=== PATIENT | female | born 1985 | race Caucasian/White ===

== ENCOUNTER → 2016-02-17 | Outpatient (CLI) | payer BC ==
[~2016-02-17] MED LIST: EXTR500C4 PO; VALT500T PO
--- NOTE | 2016-02-17 22:02 | REP ---
Clinical: well-being. Comparison: 02/10/2016 . Findings: Examination demonstrates a single live intrauterine in breech presentation. motion is identified by technologist. Placenta is noted anteriorly and grade one without evidence for placenta previa or abruption. Amniotic fluid volume is normal. Cervix measures 3.1 cm in length and appears closed. Nuchal cord cannot be excluded. Gestational age by first ultrasound 31 weeks 1 day with FANNY 04/19/2016 . Gestational age by current measurements 30 weeks 0 days with FANNY 04/27/2016 . FHR equals 147 beats per minute. BPD 7.8 cm 31 weeks 2 days HC 28.4 cm 31 weeks 1 day AC 24.7 cm 28 weeks 6 days FL 5.7 cm 30 weeks 0 days HL 5.0 cm 29 weeks 0 days HC/AC ratio 1.15 Estimated weight 1428 grams ( 14th percentile based on age by first ultrasound ). Biophysical profile score equals 8/8. Amniotic fluid index equals 18.4 cm (8.8 - 23.8) Umbilical cord SD ratio equals 2.32 Impression: Single live gestation in breech presentation. Biophysical profile score equals 8/8. Signed by Mc Jenkins MD 02/17/2016 09:54 P
== END | disposition home or self-care (01) ==
LOC: M RAD 16:12
PROVIDERS: ATTEND Advanced Practice Midwife
DX: O36.5931 Maternal care for other known or suspected poor fetal growth, third trimester, fetus 1 (principal); Z36 Encounter for antenatal screening of mother; Z3A.30 30 weeks gestation of pregnancy; O32.1XX0 Maternal care for breech presentation, not applicable or unspecified

== ENCOUNTER → 2016-03-01 | Outpatient (CLI) | payer BC ==
--- NOTE | 2016-03-01 21:37 | REP ---
Clinical: Anatomical evaluation. Comparison: 02/17/2016 . Findings: Examination demonstrates a single live intrauterine in breech presentation. motion is identified by technologist. Placenta is noted anteriorly and grade one without evidence for placenta previa or abruption. Amniotic fluid volume is normal. Cervix measures 3.4 cm in length and appears closed. Nuchal cord cannot be excluded. Gestational age by LMP 33 weeks 0 days with FANNY 04/19/2016 . Gestational age by current measurements 31 weeks 2 days with FANNY 05/01/2016 . FHR equals 157 beats per minute. BPD 8.0 cm 31 weeks 6 days HC 29.3 32 weeks 2 days AC 26.4 30 weeks 4 days FL 5.8 30 weeks 2 days HL 5.4 31 weeks 2 days HC/AC ratio 1.11 Estimated weight 1633 grams ( 5th percentile based on age by LMP and first ultrasound). Impression: Single live intrauterine in breech presentation. Growth is lower limits of normal and may warrant continued follow-up. Nuchal cord cannot be excluded. Signed by Mc Jenkins MD 03/01/2016 09:28 P
== END | disposition home or self-care (01) ==
LOC: M RAD 17:02
PROVIDERS: ATTEND Advanced Practice Midwife
DX: O36.5931 Maternal care for other known or suspected poor fetal growth, third trimester, fetus 1 (principal); O32.1XX0 Maternal care for breech presentation, not applicable or unspecified; Z36 Encounter for antenatal screening of mother; Z3A.31 31 weeks gestation of pregnancy

== ENCOUNTER → 2016-03-04 | Outpatient (CLI) | payer BC ==
--- NOTE | 2016-03-05 13:06 | REP ---
Limited obstetric sonography: History: Supervision of for biophysical profile. Findings: Scanning demonstrates a viable single intrauterine gestation in a breech lie. An anterior grade 1 placenta is seen without evidence of previa or abruption. Amniotic fluid is subjectively low normal. HUE is in the normal range at 9.1 cm (8.2 - 24.6 cm). heart rate is recorded at 147 beats per minute. Biophysical profile score is 8 out of a possible 8. S/D ratio in the umbilical cord artery by Doppler is normal at 2.04. Signed by Omar Campos MD 03/05/2016 02:40 P
== END | disposition home or self-care (01) ==
LOC: M RAD 18:30
PROVIDERS: ATTEND Obstetrics & Gynecology
DX: O36.5933 Maternal care for other known or suspected poor fetal growth, third trimester, fetus 3 (principal); Z36 Encounter for antenatal screening of mother; Z3A.00 Weeks of gestation of pregnancy not specified; O32.1XX0 Maternal care for breech presentation, not applicable or unspecified

== ENCOUNTER → 2016-03-11 | Outpatient (CLI) | payer BC ==
--- NOTE | 2016-03-12 04:56 | REP ---
Clinical: well-being . Comparison: 03/04/2016 . Findings: Examination demonstrates a single live intrauterine in breech presentation. motion is identified by technologist. Placenta is noted anteriorly and grade grade II without evidence for placenta previa or abruption. Amniotic fluid volume is normal. Cervix measures 2.6 cm in length and appears closed. Nuchal cord cannot be excluded Gestational age by LMP 34 weeks 3 days with FANNY 04/19/2016 . Gestational age by first ultrasound 34 weeks 3 days. FHR equals 126 beats per minute. Biophysical profile score equals 8/8. Amniotic fluid index equals 11.1 cm. Umbilical cord SD ratio equals 2.58 Impression: Single live advanced gestation in breech presentation. Nuchal cord cannot be excluded. Biophysical profile score equals 8/8. Amniotic fluid index and umbilical cord SD ratio are within normal range. Signed by Mc Jenkins MD 03/12/2016 04:48 A
== END | disposition home or self-care (01) ==
LOC: M RAD 18:32
PROVIDERS: ATTEND Obstetrics & Gynecology
DX: O36.5930 Maternal care for other known or suspected poor fetal growth, third trimester, not applicable or unspecified (principal); Z3A.34 34 weeks gestation of pregnancy; Z36 Encounter for antenatal screening of mother; O32.1XX0 Maternal care for breech presentation, not applicable or unspecified

== ENCOUNTER → 2016-03-17 | Outpatient (CLI) | payer BC ==
--- NOTE | 2016-03-18 04:25 | REP ---
Clinical: well-being . Comparison: 03/11/2016 . Findings: Examination demonstrates a single live intrauterine in breech presentation. motion is identified by technologist. Placenta is noted anteriorly and grade II without evidence for placenta previa or abruption. Amniotic fluid volume is low-normal. Nuchal cord cannot be excluded. Gestational age by first ultrasound 35 weeks 2 days with FANNY 04/19/2016 . Gestational age by current measurements 33 weeks 2 days with FANNY 05/03/2016 . FHR equals 150 beats per minute. Biophysical profile score equals 8/8. Amniotic fluid index equals 6.6 cm (7.9 - 24.9). Umbilical cord SD ratio equals 3.00. Estimated weight 2214 grams ( 20th percentile). Single umbilical artery noted. Impression: Single live intrauterine in breech presentation demonstrating appropriate interval growth. Biophysical profile score equals 8/8. Estimated weight normal range. Amniotic fluid volume minimally below normal range. Nuchal cord cannot be excluded. Single umbilical artery noted. Signed by Mc Jenkins MD 03/18/2016 04:18 A
== END | disposition home or self-care (01) ==
LOC: M RAD 17:58
PROVIDERS: ATTEND Obstetrics & Gynecology
DX: O36.5933 Maternal care for other known or suspected poor fetal growth, third trimester, fetus 3 (principal); Z36 Encounter for antenatal screening of mother; Z3A.33 33 weeks gestation of pregnancy; O32.1XX0 Maternal care for breech presentation, not applicable or unspecified

== ENCOUNTER → 2016-03-25 | Outpatient (CLI) | payer BC ==
--- NOTE | 2016-03-26 02:45 | REP ---
Clinical: Biophysical profile . Comparison: 03/17/2016 . Findings: Examination demonstrates a single live advanced intrauterine in breech presentation. motion is identified by technologist. Placenta is noted anteriorly and grade three without evidence for placenta previa or abruption. Amniotic fluid volume is normal. Nuchal cord cannot be excluded. Gestational age by first ultrasound 36 weeks 3 days with FANNY 04/19/2016 . FHR equals 157 beats per minute. Biophysical profile score equals 8/8 HUE equals 9.8 cm (7.6 - 24.7) Impression: Single live advanced gestation in breech presentation. Biophysical profile score equals 8/8. Amniotic fluid index is lower limits normal. Signed by Mc Jenkins MD 03/26/2016 02:37 A
== END | disposition home or self-care (01) ==
LOC: M RAD 18:37
PROVIDERS: ATTEND Obstetrics & Gynecology
DX: O36.5933 Maternal care for other known or suspected poor fetal growth, third trimester, fetus 3 (principal); Z36 Encounter for antenatal screening of mother; Z3A.36 36 weeks gestation of pregnancy; O32.1XX0 Maternal care for breech presentation, not applicable or unspecified

== ENCOUNTER → 2016-04-01 | Outpatient (CLI) | payer BC ==
--- NOTE | 2016-04-04 09:38 | REP ---
Clinical: Biophysical profile. Comparison: 03/25/2016. Findings: Ultrasound examination demonstrates single live advanced gestation in breech presentation. motion was identified by technologist. Placenta is noted anteriorly and grade III without evidence for placenta previa or abruption. Amniotic fluid is within normal limits. Nuchal cord cannot be excluded. Gestational age by first ultrasound 37 weeks 3 days with FANNY 04/19/2016. EFW by current measurements 2500 grams (13 %). Amniotic fluid index equals 7.1 cm (deepest single pocket). Biophysical profile score equals 8/8. Umbilical cord SD ratio equals 1.79 (1.60 - 2.60). Impression: Single live advanced gestation in breech presentation. Estimated weight within normal limits. Biophysical profile score equals 8/8. Signed by Mc Jenkins MD 04/04/2016 09:30 A
== END | disposition home or self-care (01) ==
LOC: M RAD 18:45
PROVIDERS: ATTEND Obstetrics & Gynecology
DX: O36.5933 Maternal care for other known or suspected poor fetal growth, third trimester, fetus 3 (principal); Z36 Encounter for antenatal screening of mother; Z3A.37 37 weeks gestation of pregnancy; O32.1XX0 Maternal care for breech presentation, not applicable or unspecified

== ENCOUNTER → 2016-04-08 | Outpatient (CLI) | payer BC ==
[~2016-04-08] MED LIST changes: +COLA100C PO; +IBUP600T26 PO; +OXYC1TAB23 PO; +PRENTAB52 PO; +PRENTAB9 PO
--- NOTE | 2016-04-08 13:41 | REP ---
Clinical: Biophysical profile. Comparison: 04/01/2016. Findings: Advanced gestation in breech presentation. Placenta is noted anteriorly and grade II without evidence for placenta previa. Gestational age by LMP and first ultrasound 38 weeks 3 days with estimated date of delivery 04/19/2016. heart rate equals 150 beats per minute. Biophysical profile score equals 8/8. Umbilical cord SD ratio equals 2.04 Impression: Biophysical profile score equals 8/8. Signed by Mc Jenkins MD 04/08/2016 01:33 P
== END ==
LOC: M RAD 12:44
PROVIDERS: ATTEND Obstetrics & Gynecology
DX: O36.5933 Maternal care for other known or suspected poor fetal growth, third trimester, fetus 3 (principal); Z36 Encounter for antenatal screening of mother; Z3A.38 38 weeks gestation of pregnancy; O32.1XX0 Maternal care for breech presentation, not applicable or unspecified

== ENCOUNTER 2016-04-12 05:06 | Inpatient (IN) | payer BC ==
[~2016-04-12] VITALS: Ht 170.2 cm; Wt 84.0 kg
[2016-04-12] VITALS (10 sets, daily range): BP systolic 105–134; BP diastolic 56–86
[~2016-04-12 05:06] MED LIST changes: -COLA100C PO; -IBUP600T26 PO; -OXYC1TAB23 PO; -PRENTAB9 PO
[2016-04-12] MEDS ORDERED: PRENTAB9 PO (05:24)
[2016-04-12 05:44] LABS: MEAN CORPUSCULAR HEMOGLOBIN 30.9 pg (27.0-33.0); MEAN CORPUSCULAR HGB CONC 33.9 g/dl (32.0-36.5); MEAN CORPUSCULAR VOLUME 91.3 fl (80.0-96.0); RED CELL DISTRIBUTION WIDTH 12.6 % (11.5-14.5); WHITE BLOOD COUNT 11.6 K/mm3 (4.0-10.0)
[2016-04-12] MEDS ORDERED: ceFAZolin SOD 1 GM in D5W MINI-BAG PLUS 50 ML IV ONE (05:45)
[2016-04-12] MEDS ORDERED: LR 800 ML IV ONE (05:45)
[2016-04-12] MEDS ORDERED: BICITRA 30ML SOLN UDC PO ONE (05:45)
[2016-04-12] MEDS ORDERED: LR 1,000 ML IV SCH ×2 (06:15→09:00)
[2016-04-12] MEDS ORDERED: METOCLOPRAMIDE INJ 10MG/2ML VIAL (J2765) IV PRN ×2 (07:46→09:00)
[2016-04-12] MEDS ORDERED: ONDANSETRON 4MG/2ML VIAL (J2405) IV PRN ×3 (07:46→09:00)
[2016-04-12] MEDS ORDERED: NALOXONE INJ 0.4 MG/1 ML VIAL (J2310) IV PRN ×2 (07:46)
[2016-04-12] MEDS ORDERED: NALBUPHINE HCL 10 MG/ML AMP (J2300) IV PRN ×2 (07:46→09:00)
[2016-04-12] MEDS ORDERED: PHENYLephrine HCL 500 MCG/5 ML (100MCG/ML) SYRINGE (J2370) As Ordered ONE (08:04)
[2016-04-12] MEDS ORDERED: OXYTOCIN INJ 10 UNITS/ML VIAL (J2590) As Ordered ONE (08:04)
[2016-04-12] MEDS ORDERED: MORPHINE PRES-FREE INJ 10 MG/10 ML VIAL (J2274) As Ordered ONE (08:04)
[2016-04-12] MEDS ORDERED: ONDANSETRON 4MG/2ML VIAL (J2405) As Ordered ONE (08:04)
[2016-04-12] MEDS ORDERED: ePHEDrine SULFATE 25 MG/5 ML(5MG/ML) SYRINGE As Ordered ONE ×2 (08:04→09:07)
[2016-04-12] MEDS ORDERED: KETOROLAC 60 MG/2 ML VIAL (J1885) As Ordered ONE (08:14)
[2016-04-12] MEDS ORDERED: PERCOCET 5MG/325MG TAB PO PRN (09:00)
[2016-04-12] MEDS ORDERED: DOCUSATE SODIUM 100 MG CAP PO PRN (09:00)
[2016-04-12] MEDS ORDERED: OXYTOCIN DRIP 30 UNITS in APPROPRIATE DILUENT 1 EA IV ONE (09:00)
[2016-04-12] MEDS ORDERED: RHOGAM 300 MCG (1500 IU) INJ (J2790) IM SCH (09:00)
[2016-04-12] MEDS ORDERED: fentaNYL 100 MCG/2 ML INJECTION (J3010) IV PRN (09:00)
[2016-04-12] MEDS ORDERED: MEASLES,MUMPS,RUBELLA VACCINE INJ (MMR-II) (90707) SC SCH (09:00)
[2016-04-12] MEDS: PRENATAL VITAMIN TAB PO SCH (09:00)
--- NOTE | 2016-04-12 09:26 | RO ---
DATE OF PROCEDURE: 04/12/2016 PREOPERATIVE DIAGNOSIS: 39 weeks, breech presentation. POSTPROCEDURE DIAGNOSIS: 39 weeks, breech presentation. PROCEDURE: Primary low transverse section. SURGEON: Dr. Cedric Castillo BLANKET FOLDER: ANESTHESIA: Spinal. ESTIMATED BLOOD LOSS: 500 mL. URINE OUTPUT: 300 mL. IV FLUIDS: 1200 mL lactated Ringers (LR). FINDINGS: 6 pound 3 ounce or 2816 gram male infant, Apgars 9 and 9. Cristobal breech position. Normal uterus, fallopian tubes and ovaries. There was a 2-vessel umbilical cord noted. There was also a nuchal cord times one. OPERATIVE SUMMARY: The patient taken to the operating room where spinal anesthesia was induced. She was prepped and draped in sterile fashion in the supine position. A Okeefe catheter was placed. A Pfannenstiel skin incision was made with the scalpel and carried through to the fascia. The fascia was nicked and extended. The peritoneal cavity was entered. Bladder flap was created. A curvilinear incision was made in the lower uterine segment until bulging membranes were noted. This was extended manually. Membranes were ruptured of clear fluid. The was delivered from the cristobal breech position using standard maneuvers without difficulty. The cord was doubly clamped and cut. The infant was handed off to the awaiting nurses. The placenta was expressed. The uterus was exteriorized and cleared of clots and debris. The uterine incision was closed with #0 Vicryl in a running locked fashion. A second imbricating layer of #0 Vicryl was placed. The uterus was placed back in the abdominal cavity. The peritoneum was closed with #2-0 Vicryl in a running fashion. The fascia was closed with #0 Vicryl. The skin was closed with #4-0 Monocryl subcuticular sutures. Sponge, needle and instrument counts were correct.
[2016-04-12] MEDS ORDERED: ePHEDrine SULFATE 25 MG/5 ML(5MG/ML) SYRINGE IV PRN ×2 (09:30→11:30)
[2016-04-12] MEDS ORDERED: LACTATED RINGER'S 1000 ML IV ONE (10:00)
[2016-04-12] MEDS ORDERED: LR 500 ML IV ONE (11:30)
[2016-04-12] MEDS: PERCOCET 5MG/325MG TAB PO PRN (12:50)
[2016-04-12] MEDS: KETOROLAC 30 MG/ML VIAL (J1885) IV SCH ×2 (14:40→23:05)
[2016-04-12] MEDS: LR 1,000 ML IV SCH ×2 (15:05→23:06)
[2016-04-12] MEDS ORDERED: LR 1,000 ML IV ONE (23:00)
[2016-04-13] VITALS (7 sets, daily range): BP systolic 86–122; BP diastolic 51–61
[2016-04-13] MEDS: KETOROLAC 30 MG/ML VIAL (J1885) IV SCH ×2 (04:41→10:53)
[2016-04-13] MEDS ORDERED: OXYC1TAB23 PO (07:09)
[2016-04-13] MEDS ORDERED: IBUP600T26 PO (07:10)
[2016-04-13] MEDS ORDERED: COLA100C PO (07:11)
[2016-04-13 07:27] LABS: MEAN CORPUSCULAR HEMOGLOBIN 30.9 pg (27.0-33.0); MEAN CORPUSCULAR HGB CONC 33.3 g/dl (32.0-36.5); RED CELL DISTRIBUTION WIDTH 12.8 % (11.5-14.5); WHITE BLOOD COUNT 6.2 K/mm3 (4.0-10.0)
[2016-04-13] MEDS: PRENATAL VITAMIN TAB PO SCH (09:00)
[2016-04-13] MEDS: PERCOCET 5MG/325MG TAB PO PRN ×4 (12:50→22:37)
[2016-04-13] MEDS ORDERED: IBUPROFEN 800 MG TAB PO SCH (16:00)
[2016-04-13] MEDS: IBUPROFEN 800 MG TAB PO SCH (18:34)
[2016-04-13] MEDS: SIMETHICONE 80 MG CHEW TAB PO PRN (21:03)
[2016-04-14] MEDS: IBUPROFEN 800 MG TAB PO SCH ×2 (03:45→10:45)
[2016-04-14 05:22] VITALS: BP 108/58
[2016-04-14] MEDS: PRENATAL VITAMIN TAB PO SCH (08:22)
[2016-04-14] MEDS: SIMETHICONE 80 MG CHEW TAB PO PRN (08:22)
[2016-04-14] MEDS ORDERED: OXYC1TAB23 PO (08:48)
[2016-04-14] MEDS: PERCOCET 5MG/325MG TAB PO PRN (09:56)
== END 2016-04-14 12:21 | disposition home or self-care (01) | DRG 540 ==
LOC: M LDI 05:06 → M OBS 11:36
PROVIDERS: ADMIT Specialist; ATTEND Specialist
PROC: 10D00Z1 Extraction of Products of Conception, Low, Open Approach (ICD-10-PCS; principal; 2016-04-12 07:30)
DX: O32.1XX0 Maternal care for breech presentation, not applicable or unspecified (principal); O69.82X0 Labor and delivery complicated by other cord entanglement, without compression, not applicable or unspecified; Z37.0 Single live birth; Z3A.39 39 weeks gestation of pregnancy

== ENCOUNTER 2016-08-24 10:35 | Emergency (ER) | payer BC ==
[~2016-08-24] VITALS: Ht 172.7 cm; Wt 69.8 kg
[~2016-08-24 10:35] MED LIST changes: +COLA100C5 PO; +IBUP-1022 PO; +OXYC1TAB23 PO; +PRENTAB9 PO
[2016-08-24] MEDS ORDERED: ONDANSETRON 4MG/2ML VIAL (J2405) IV ONE (11:45)
[2016-08-24] MEDS ORDERED: NS 1,000 ML IV ONE (11:45)
[2016-08-24 12:00] LABS: MEAN CORPUSCULAR HEMOGLOBIN 30.6 pg (27.0-33.0); MEAN CORPUSCULAR VOLUME 90.1 fl (80.0-96.0); RED CELL DISTRIBUTION WIDTH 12.2 % (11.5-14.5); WHITE BLOOD COUNT 8.8 K/mm3 (4.0-10.0)
[2016-08-24 12:18] LABS: CONTROL LINE HCG INT CTR LINE PRESENT
[2016-08-24 12:43] LABS: METHADONE URINE NEGATIVE (NEGATIVE)
[2016-08-24 12:52] LABS: ALBUMIN 3.6 GM/DL (3.2-5.2); ALKALINE PHOSPHATASE 73 U/L (45-117); ALT/SGPT 26 U/L (12-78); ANION GAP 10 MEQ/L (8-16); AST/SGOT 15 U/L (15-37); BILIRUBIN,DIRECT 0.2 MG/DL (0.0-0.2); BILIRUBIN,TOTAL 0.8 MG/DL (0.2-1.0); BLOOD UREA NITROGEN 10 MG/DL (7-18); CALCIUM LEVEL 9.2 MG/DL (8.5-10.1); CARBON DIOXIDE LEVEL 21 MEQ/L (21-32); CHLORIDE LEVEL 110 MEQ/L (98-107); CREATININE FOR GFR 0.75 MG/DL (0.55-1.02); GLOMERULAR FILTRATION RATE > 60.0 (>60); GLUCOSE, FASTING 96 MG/DL (70-105); POTASSIUM SERUM 3.5 MEQ/L (3.5-5.1); SODIUM LEVEL 141 MEQ/L (136-145); TOTAL PROTEIN 7.2 GM/DL (6.4-8.2)
[2016-08-24] MEDS ORDERED: metroNIDAZOLE (FLAGYL) 500 MG TAB PO ONE (13:00)
[2016-08-24] MEDS ORDERED: METR1TAB66 PO (13:52)
[2016-08-24 14:12] VITALS: BP 54/50
--- NOTE | 2016-08-24 15:04 | REP ---
CHEST, TWO VIEWS: There is no evidence of acute infiltrate. No pleural effusion is seen. The heart is normal in size. The mediastinal silhouette is unremarkable. The visualized osseous structures are intact. IMPRESSION: No acute pulmonary disease. Signed by Dar Muñoz MD 08/24/2016 04:27 P
--- NOTE | 2016-08-24 15:12 | REP ---
CT abdomen and pelvis without IV or oral contrast: Stone protocol study. History: Right lower quadrant pain and vomiting. Comparison CT study is from March 15, 2007. CT findings: Preliminary digital rad technologist radiograph demonstrates an unremarkable bowel gas pattern. An IUD is seen in the central pelvis. Axial CT images demonstrate that the lung bases are clear. The liver and the spleen are normal in size, homogeneous in texture. No adrenal lesion is seen on either side. The gallbladder and pancreas are unremarkable. No intrarenal calculus is seen. No hydronephrosis is noted on either side. There is a small accessory splenule in the left upper quadrant. An intrauterine device is seen in an anteverted uterus. No ovarian pathology is seen. No free fluid is noted. There is a 1.5 cm calcified structure in the right lower quadrant consistent with an enterolith or a partially digested tablet within the small intestine. This is not within the appendix. The appendix is seen deeper in to the pelvis. The appendix has a normal appearance. There is a similarly opaque and similar sized density within the lumen of the stomach suggesting that this density is in fact a partially digested tablet. No other intraluminal abnormality is seen. No other no other small or large bowel abnormality is noted. Impression: Two partially digested tablets visible, one in the stomach, the other in the distal small bowel. Normal appendix seen. No urinary tract abnormality noted. IUD noted in place in the uterus. No other significant findings. Signed by Omar Campos MD 08/24/2016 03:47 P
--- NOTE | 2016-08-24 18:29 | ECGEPIP ---
Stationary ECG Study [facility] - ED Test Date: 2016-08-24 Pat Name: MARYANA CALDERON Department: Room: - Gender: F Title Agent: ELOY : 1985 Requested By: RASHARD Ramos Order Number: [id number] Reading MD: Kelly Cazares Measurements Intervals Palmer Rate: 49 P: 57 MD: 140 QRS: 91 QRSD: 109 T: 59 QT: 471 QTc: 426 Interpretive Statements SINUS BRADYCARDIA BORDERLINE RIGHT AXIS DEVIATION NO PRIOR FOR COMPARISON Electronically Signed On 08-24-2016 18:29:36 EDT by Kelly Cazares
== END 2016-08-24 14:13 | disposition home or self-care (01) ==
LOC: M ED 10:35
DX: F41.1 Generalized anxiety disorder (principal); N76.0 Acute vaginitis; R00.1 Bradycardia, unspecified; R11.2 Nausea with vomiting, unspecified; R06.02 Shortness of breath; F17.200 Nicotine dependence, unspecified, uncomplicated; Z79.3 Long term (current) use of hormonal contraceptives
CPT/HCPCS: 71020; 74176; 80048; 80076; 80307; 83690; 84443; 84703; 85027; 87210; 87491; 87591; 93005; 96374; 99284; G0480; J2405

== ENCOUNTER → 2017-08-10 | Outpatient (CLI) | payer BC | LOC: M WUC 19:11 | DX: M79.671 Pain in right foot (principal) | CPT/HCPCS: 73630 ==

== ENCOUNTER 2018-04-01 11:26 | Emergency (ER) | payer BC ==
[~2018-04-01] VITALS: Ht 172.7 cm; Wt 59.1 kg
[~2018-04-01 11:26] MED LIST changes: +METR-201 PO
[2018-04-01] MEDS ORDERED: ADACEL/BOOSTRIX VACCINE (DIPHTH/PERTUSS/ACELL/TETANUS)0.5ML SYR (90715) IM ONE (12:15)
[2018-04-01] MEDS ORDERED: LIDOCAINE 1% MDV 20ML VIAL SC ONE (12:15)
[2018-04-01 12:49] VITALS: BP 111/55
== END 2018-04-01 12:57 | disposition home or self-care (01) ==
LOC: M ED 11:26
DX: S61.216A Laceration without foreign body of right little finger without damage to nail, initial encounter (principal); W25.XXXA Contact with sharp glass, initial encounter; Y92.099 Unspecified place in other non-institutional residence as the place of occurrence of the external cause; Y93.9 Activity, unspecified; Y99.9 Unspecified external cause status; Z72.0 Tobacco use; K92.9 Disease of digestive system, unspecified; F32.9 Major depressive disorder, single episode, unspecified; F41.0 Panic disorder [episodic paroxysmal anxiety]

== ENCOUNTER → 2020-01-21 | Outpatient (CLI) | payer SELFPAY ==
[~2020-01-21] MED LIST changes: -METR-201 PO; +METR-265 PO
== END ==
LOC: M LABSMTC 17:25
PROVIDERS: ATTEND Pediatrics
DX: Z20.828 Contact with and (suspected) exposure to other viral communicable diseases (principal)

== ENCOUNTER → 2021-01-21 | Outpatient (CLI) | payer SELFPAY | LOC: M LABSMTC 11:48 | PROVIDERS: ATTEND Pediatrics | DX: Z11.52 Encounter for screening for COVID-19 (principal) ==